=== PATIENT | female | born 1955 | race Caucasian/White ===

== ENCOUNTER 2024-06-12 20:45 | Inpatient (IN) | payer MEDICARE, SELFPAY ==
[2024-06-12] VITALS (26 sets, daily range): BP systolic 56–107; BP diastolic 38–70; BMI 29.6
[2024-06-12 17:03] LABS: % Basophils 0.7 % (0-2); % Eosinophils 2.2 % (0-6); % Immature Granulocytes 0.7 % (0-0.5); % Lymphocytes 31.8 % (20.5-51.1); % Monocytes 5.8 % (1.7-9.3); % Neutrophils 58.8 % (42.2-75.2); Absolute Basophils 0.1 10^3/uL (0-0.2); Absolute Eosinophils 0.4 10^3/uL (0-0.7); Absolute Immature Granulocytes 0.1 10^3/uL (0-0.05); Absolute Lymphocytes 5.4 10^3/uL (1.2-3.4); Absolute Neutrophils 9.9 10^3/uL (1.4-6.5); Hematocrit 44.6 % (37.0-47.0); Mean Corp Hgb Conc. 33.6 g/dL (33.0-37.0); Mean Corpuscular Hgb 29.8 pg (27.0-31.0); Mean Corpuscular Volume 88.7 fL (81.0-99.0); Mean Platelet Volume 9.4 fL (7.4-10.4); Nucleated Red Blood Cells % 0 %; Platelet Count 349 10^3/uL (130-400); Red Blood Cell Count 5.03 10^6/uL (4.20-5.40); Red Cell Dist. Width 13.6 % (11.5-14.5); White Blood Cell Count 16.8 10^3/uL (4.8-10.8)
[2024-06-12 17:22] LABS: ALT (SGPT) 14 U/L (0-35); AST (SGOT) 16 U/L (14-36); Albumin 4.3 g/dl (3.5-5.0); Alkaline Phosphatase 73 U/L (38-126); Blood Urea Nitrogen 63 mg/dl (7-17); Calcium 8.6 mg/dl (8.4-10.2); Carbon Dioxide 24 mmol/L (22-30); Chloride 96 mmol/L (98-107); Estimated Creatinine Clearance 10 ml/min; Glucose 137 mg/dl (70-99); Potassium 3.9 mmol/L (3.5-5.1); Sodium 138 mmol/L (135-145); Total Bilirubin 0.7 mg/dl (0.2-1.3); Total Protein 7.2 g/dl (6.3-8.2); eGFR 6.96
[2024-06-12] MEDS: NSS 1000 IV ×3 (17:51→22:51)
--- NOTE | 2024-06-12 18:51 | ED.GENMED ---
History of Present Illness
General
Chief Complaint: Abnormal Lab Value
Source: patient and spouse
Exam Limitations: none
Time Seen by Provider: 06/12/24 17:36
Nursing documentation reviewed up to this point in time: agreed with
History of Present Illness
History of Present Illness:
Patient is a 68-year-old female who presents from her family physician's office after she was found to be in renal failure. Over the past couple of months the patient's had visual difficulties and mild confusion. Patient was to have a outpatient
MRI for stroke and had blood work done yesterday which showed her BUN and creatinine to be very elevated. Patient denies headache. Patient denies chest pain, shortness of breath or palpitations. Patient denies any GI symptoms. Patient denies any
back or flank pain. Patient denies any dysuria, hematuria, urgency or frequency. Patient has no previous history of similar episodes. Patient has no history of kidney issues.
Past History
Past History
ED Past Medical History: HTN, NIDDM and Other (Migraines, neck pain, back pain)
Social History
Tobacco: Non-smoker
Review of Systems
Review of Systems
All Other Systems: ROS reviewed and negative except as documented in HPI and ROS
Constitutional: Reports fatigue; Denies fever or chills
EENT: Reports no symptoms
Respiratory: Reports no symptoms
Cardiac: Reports no symptoms
ABD/GI: Reports no symptoms
: Reports no symptoms
Musculoskeletal: Reports no symptoms
Skin: Reports no symptoms
Neurological: Reports other (Increased confusion); Denies dizzy, headache, weakness or numbness
Hematologic/Lymphatic: Reports no symptoms
Phy Exam
Physical Exam
Physical Exam:
Physical Exam
General: No apparent distress, alert and appropriate, well nourished, well hydrated
HENT: Normocephalic, supple with no lymphadenopathy, no thyromegaly
Eyes: Clear sclera, conjuctiva without injection
Heart: Regular rhythm and rate. No S3, S4. No murmur. No NVD, bruit
Lungs: No respiratory distress, no stridor, lung sounds clear and equal bilaterally
Abdomen: Soft, nontender, no organomegaly, no CVA tenderness, BS good
Neuro: Alert and oriented x 3, CN II - XII intact, no motor focality, no cerebellar dysfunction
Skin: no rash
Psychiatric: well kept. interactive and cooperative
Extremities: No edema, cyanosis, tenderness, Good and equal peripheral pulses.
Course
Orders/Labs/Results
Orders:
Orders
06/12/24 16:54
Comprehensive Metabolic Panel Urgent
06/12/24 16:55
Complete Blood Count/With Diff Urgent
06/12/24 17:22
Electrocardiogram (*1) Urgent
Reason for Study: Fatigue / Weakness
EKG- Treatment ONCE
06/12/24 17:50
0.9% Sodium Chloride 1000 ml [Nss] 1,000 ml IV BOLUS
06/12/24 18:50
US Renal With Bladder Urgent
Comment:
Reason For Exam: new onset renal failure
Abnormal Lab Results
06/12/24 06/12/24
16:54 16:55
WBC 16.8 H 10^3/uL
(4.8-10.8)
Abs Immat Gran (auto) 0.1 H 10^3/uL
(0-0.05)
Absolute Neuts (auto) 9.9 H 10^3/uL
(1.4-6.5)
Absolute Lymphs (auto) 5.4 H 10^3/uL
(1.2-3.4)
Absolute Monos (auto) 1.0 H 10^3/uL
(0.1-0.6)
Immature Gran % 0.7 H %
(0-0.5)
Chloride 96 L mmol/L
(98-107)
BUN 63 H mg/dl
(7-17)
Creatinine 6.2 H* mg/dL
(0.6-1.0)
Glucose 137 H mg/dl
(70-99)
06/12/24 16:55
06/12/24 16:54
Vital Signs
Initial and Last Documented VS:
Initial Vital Signs
Temp Pulse Resp BP Pulse Ox
98.1 F 79 18 86/53 98
06/12/24 16:44 06/12/24 16:44 06/12/24 16:44 06/12/24 16:44 06/12/24 16:44
Last Documented Vital Signs
Temp Pulse Resp BP Pulse Ox
98.1 F 71 9 71/45 96
06/12/24 16:44 06/12/24 18:45 06/12/24 18:45 06/12/24 18:45 06/12/24 18:45
*Radiology
Radiology exam reviewed: other (Awaiting ultrasound)
*Pulse Oximetry
Patient hypoxic: no
*EKG
Interpreted by ED Provider?: Yes
EKG Intrepretation Date: 06/12/24
EKG Intrepretation Time: 18:55
Interpretation: abnormal
Comparison EKG: no comparison EKG present
Heart Rate: 74
Rate: normal
Rhythm: sinus
Wendel: normal axis
Interval: normal interval
QRS Pattern: normal QRS
Ischemia: non-specific ST changes
*Elderly Companion Interpretation
Rate: normal
Interpretation: normal
Heart Rate: 74
Rhythm: sinus
*Critical Care Note
Total Time (30-74mins, 75-104mins- exclusive of procedures): Not Applicable
Update Note
Update Note:
Patient does appear dry and dehydrated. Etiology of the patient's renal failure could be medication as she is on lisinopril, hypertension and/or diabetes. Will give IV fluids especially in light of the patient's blood pressure being so low.
Patient will be admitted. Patient will get an ultrasound of her kidneys while awaiting admission.
ED Attending Note
-
Portions of this chart may have been created with voice recognition software.� Occasional wrong word or��sound alike� substitutions may have occurred due to the inherent limitations of voice recognition software.
Discharge Plan
Departure
Patient Disposition: Admit
Date of Disposition: 06/12/24
Time of Disposition: 18:57
Admit to: Telemetry
Admit to doctor: Hospitalist
Presentation/result/management discussed w/ accepting MD/DO: Hospitalist
Patient with high blood pressure during this ER visit?: No
Condition: Serious
Covid-19: Not Applicable
Discharge Problem:
Acute renal failure
Prescriptions:
No Action
lisinopril 20 mg tablet
20 mg PO DAILY
amlodipine 5 mg tablet
5 mg PO DAILY
aspirin 81 mg Tablet,Delayed Release (Dr/Ec)
81 mg PO DAILY
oxycodone 15 mg tablet
15 mg PO Q4HPRN PRN (Reason: moderate pain)
Patient Comments:
06/12/2024: last filled 06/10/24, 180 tabs for 30 days from [facility]
gabapentin 300 mg capsule
600 mg PO TID
insulin lispro [Humalog KwikPen Insulin] 100 unit/mL Insulin Pen
10 unit SC BID
insulin glargine [Lantus Solostar U-100 Insulin] 100 unit/mL (3 mL) insulin pen
25 unit SC BID
Interventions
Interventions:
*Risk Screen - Suicide Last Done: 06/12/24 16:44
*General Assessment Last Done: 06/12/24 16:44
*Neglect/Abuse Screening Last Done: 06/12/24 16:44
ED- Fall Risk Assessment Last Done: 06/12/24 17:55
Discharge Date and Time
Print Language: LATVIAN
--- NOTE | 2024-06-12 20:37 | HPS.HSE ---
Family Physician
-
Family Physician: Salvador Sarabia
Chief Complaint
-
confusion
History of Present Illness
68-year-old female past medical history of hypertension, diabetes, migraines, chronic neck/back pain, presenting from family physician's office after she was found to be in renal failure. Over the past few months the patient has had multiple
symptoms including intermittent confusion, memory loss, blurry vision. Patient had blood work done yesterday by her primary which showed elevated BUN and creatinine. She was also supposed to have outpatient MRI brain done. She denies any
headache. She denies any chest pain or shortness of breath or palpitations. She denies any nausea vomiting or abdominal pain or diarrhea. She has had decreasing urine output. She has decreased appetite. She denies urinary symptoms such as
burning or frequency. She denies any new medications recently. She denies difficulty speaking or swallowing or numbness or tingling or focal weakness. She denies NSAID use. Denies any lower extremity.
She denies smoking or alcohol use.
Medical History
Past Medical History
Past Medical History: Reports Other (hypertension, diabetes, migraines, chronic neck/back pain,)
Past Surgical History: Reports None
Social History
Tobacco: Non-smoker
Alcohol: None
Drug: None
Family History
Family History: Not pertinent
Allergies / Home Medications
Allergies reflects when Allergies were last updated in [facility].
Home Medications with original date entered in [facility]
Allergy/Medication List:
Allergies
Allergy/AdvReac Type Severity Reaction Status Date / Time
anti inflamatories Allergy Swelling Uncoded 07/30/08 16:12
tape Allergy Itching Uncoded 07/30/08 16:12
Home Medications
amlodipine 5 mg tablet 5 mg PO DAILY 06/12/24
aspirin 81 mg tablet,delayed release 81 mg PO DAILY 06/12/24
gabapentin 300 mg capsule 600 mg PO TID 06/12/24
insulin glargine 100 unit/mL (3 mL) subcutaneous pen (Lantus Solostar U-100 Insulin) 25 unit SC BID 06/12/24
insulin lispro 100 unit/mL subcutaneous pen (Humalog KwikPen (U-100) Insulin) 10 unit SC BID 06/12/24
lisinopril 20 mg tablet 20 mg PO DAILY 06/12/24
oxycodone 15 mg tablet 15 mg PO Q4HPRN PRN moderate pain 06/12/24
Review of Systems
-
History Source: Patient
A 12 point ROS was completed and negative except as noted: Yes
Constitutional: Reports No Symptoms
EENT: Reports No Symptoms
Respiratory: Reports No Symptoms
Cardiac: Reports No Symptoms
Abdomen/GI: Reports No Symptoms
: Reports No Symptoms
Musculoskeletal: Reports No Symptoms
Skin: Reports No Symptoms
Neurological: Reports See HPI
Endocrine: Reports No Symptoms
Hematologic/Lymphatic: Reports No Symptoms
Psych: Reports No Symptoms
Physical Exam
Vital Signs
Vital Signs
Temp Pulse Resp BP Pulse Ox
98.1 F 79 14 89/51 98
06/12/24 16:44 06/12/24 20:00 06/12/24 20:00 06/12/24 20:00 06/12/24 19:15
Physical Exam
General: Well Developed, Well Nourished and No Apparent Distress
HEENT: NormoCephalic, Moist mucous membranes and Atraumatic
Respiratory: Clear
Cardiac: S1/S2 and Regular Rhythm; No Murmur or Rub
GI: Soft, Non Tender, Non Distended and Normal Bowel Sounds; No Organomegaly
Rectal: Deferred by Provider
Musculoskeletal: No Clubbing, No Cyanosis and No Edema
Skin: No Rash
Neuro: Nonfocal/grossly intact
Laboratory Results
-
06/12/24 16:55
06/12/24 16:54
Laboratory Results
Total Bilirubin 0.7 mg/dl (0.2-1.3) 06/12/24 16:54
AST 16 U/L (14-36) 06/12/24 16:54
ALT 14 U/L (0-35) 06/12/24 16:54
Alkaline Phosphatase 73 U/L (38-126) 06/12/24 16:54
Data Reviewed
-
Lab Data: Labs Reviewed by me
Old Records: Reviewed
Impression/Plan
-
IMPRESSION:
PLAN:
# Uremic encephalopathy
# Oliguric TY secondary to hypotension/TRINIDAD inhibitor
-Not volume overloaded on examination
-EKG shows normal sinus rhythm
-Renal ultrasound shows nonobstructing right renal calculus, no hydronephrosis
-Check urinalysis
-Check I's and O's
-Bladder scan protocol
-IV fluids
-Hold lisinopril, amlodipine
-Nephrology consulted
Essential hypertension
Type 2 diabetes
-Reduce Lantus from 25 BID to 12 BID given decreased PO intake
-ISS
Diabetic neuropathy
-Continue gabapentin
History of migraines
Chronic neck/back pain
-Continue oxycodone
DNR/DNI
DVT prophylaxis heparin
Renal diet
--- NOTE | 2024-06-12 22:50 | PTCARENOTE ---
pt adm to ICU (IMU status), aaox3, forgetful, SR HR 70s, RA Sat 95%, RA IV patent. assessment as documented, POC discussed, call woodson with patient. bed alarm on.
[2024-06-12] MEDS: ROXICODONE 5 MG PO (23:04)
[2024-06-12 23:28] LABS: Glucose - Point of Care 116 mg/dl (70-99)
[2024-06-13] VITALS (21 sets, daily range): BP systolic 74–137; BP diastolic 49–72; BMI 29.0
[2024-06-13 05:47] LABS: Hematocrit 37.4 % (37.0-47.0); Hemoglobin 12.8 g/dL (12.0-16.0); Mean Corp Hgb Conc. 34.2 g/dL (33.0-37.0); Mean Corpuscular Hgb 30.5 pg (27.0-31.0); Mean Platelet Volume 9.8 fL (7.4-10.4); Platelet Count 195 10^3/uL (130-400); Red Cell Dist. Width 13.2 % (11.5-14.5)
[2024-06-13 06:07] LABS: ALT (SGPT) 11 U/L (0-35); AST (SGOT) 14 U/L (14-36); Albumin 3.3 g/dl (3.5-5.0); Alkaline Phosphatase 65 U/L (38-126); Blood Urea Nitrogen 60 mg/dl (7-17); Calcium 7.8 mg/dl (8.4-10.2); Carbon Dioxide 23 mmol/L (22-30); Chloride 105 mmol/L (98-107); Estimated Creatinine Clearance 13 ml/min; Glucose 119 mg/dl (70-99); Sodium 140 mmol/L (135-145); Total Bilirubin 0.5 mg/dl (0.2-1.3); Total Protein 5.9 g/dl (6.3-8.2)
[2024-06-13 06:07] LABS: Urine Albumin Negative (Neg - Trace); Urine Bilirubin Negative (Negative); Urine Character Clear (Clear); Urine Color Yellow; Urine Glucose Negative (Negative); Urine Ketone Negative (Negative); Urine Leukocyte 1+ (Negative); Urine Nitrite Negative (Negative); Urine Occult Blood Negative (Negative); Urine Specific Gravity 1.015 (<1.030); Urine Urobilinogen Negative (Neg - 1+)
[2024-06-13 06:42] LABS: Urine Mucus Moderate; Urine Squamous Cell >30 /LPF (Few)
[2024-06-13 06:43] LABS: Urine Bacteria Many (Negative); Urine Red Blood Cell 0-2 /HPF (0-2); Urine White Cell 40-50 /HPF (0-5)
[2024-06-13 07:59] LABS: Glucose - Point of Care 111 mg/dl (70-99)
[2024-06-13] MEDS: NOVOLOG FLEXPEN-LOW RESISTANCE SC (08:09)
[2024-06-13] MEDS: LANTUS 0.12 UNITS SC ×2 (08:23→20:48)
[2024-06-13] MEDS: ASPIR LOW (ENTERIC COATED) 81 MG PO (08:24)
[2024-06-13] MEDS: NEURONTIN 300 MG PO (08:24)
[2024-06-13] MEDS: HEPARIN 5000 UNITS SC ×2 (08:24→20:48)
[2024-06-13] MEDS: ROXICODONE 5 MG PO ×2 (08:31→16:36)
[2024-06-13] MEDS: NSS 1000 IV ×2 (08:31→22:03)
--- NOTE | 2024-06-13 09:30 | PTCARENOTE ---
Rec'd care of patient at 0715. Patient alert and oriented. Forgetful. NSR with PACs on tele monitor. No edema. Palpable pulses. Lung sounds diminished in b/l base. Pulse ox 92% on RA. +BS. Per patient, last BM 06/12. Voiding in bathroom. Standby
supervision with ambulation due to generalized weakness. OOB in chair. IVFs infusing through peripheral INT. VSS.
[2024-06-13 10:09] LABS: Glycohemoglobin (HgbA1c) 6.7 % (4.0-5.6)
[2024-06-13] MEDS: STERILE WATER FOR INJECTION 10 ML IV (10:22)
[2024-06-13] MEDS: ROCEPHIN 1000 MG IV (10:22)
[2024-06-13 11:56] LABS: Glucose - Point of Care 202 mg/dl (70-99)
--- NOTE | 2024-06-13 11:58 | CM ---
CM reviewed medical records. Patient lives independently with . Patient has had a remote history of [facility], but is currently not on service. Patient does not have a history of SNF and currently does not rely on any DME. Patient is
active with her PCP. Patient uses [facility] for medication services.
PLAN: Pending nephrology work up.
[2024-06-13] MEDS: NOVOLOG FLEXPEN-LOW RESISTANCE 2 UNITS SC (12:18)
--- NOTE | 2024-06-13 13:11 | W.PN.HOSP.TC ---
Today's Communication/Plan
-
see outlined plan
Assessment / Plan
Assessment / Plan
Assessment:
Uremic encephalopathy
Oliguric TY secondary to hypotension/TRINIDAD inhibitor
- possible ischemic ATN
- check FENA
- Renal US: Nonobstructing right renal calculus. No hydronephrosis.
- continue IVF
- BS/SC protocol
- Nephrology consulted; follow their workup
- trend BMP
Essential hypertension
- hold TRINIDAD
Type 2 diabetes
- Reduce Lantus from 25 BID to 12 BID given decreased PO intake
- ISS
Diabetic neuropathy
- continue gabapentin renally dosed
History of migraines
Chronic neck/back pain
- continue oxycodone
UTI
- on Rocephin, day 1
- follow cultures
2.5 months of blurred vision
- CT head ordered d/t concern from OP ophthalmology for CVA
DVT ppx: Heparin
Code: DNR/DNI
Anticipated Discharge: > 48 hours
Subjective/Interval History
-
Date of Service: June 13, 2024
feels well no complaints currently
reports 2.5 months of blurry vision
Objective Data
-
Labs:
Laboratory Results
06/13/24
05:27
WBC 11.0 H
Hgb 12.8
Hct 37.4
Plt Count 195 D
Sodium 140
Potassium 4.0
Chloride 105
Carbon Dioxide 23
BUN 60 H
Creatinine 4.7 H*
Glucose 119 H
Calcium 7.8 L
Total Bilirubin 0.5
AST 14
ALT 11
Alkaline Phosphatase 65
Vital Signs:
Vital Signs
Temp Pulse Resp BP Pulse Ox
98.1 F 72 13 92/68 88
06/13/24 11:30 06/13/24 12:00 06/13/24 12:00 06/13/24 12:00 06/13/24 10:00
I&O
06/12/24 06/13/24 06/14/24
06:59 06:59 06:59
Intake Total 700 / 800 1220 / 1220
Output Total 400 / 400 650 / 650
Balance 300 / 400 570 / 570
Physical Exam
-
General: No Apparent Distress
HEENT: Normocephalic and Atraumatic
Respiratory: Negative Wheezes
Cardiac: Regular Rhythm and S1/S2
GI: Soft
Genito-urinary: No Costovertebral Tender
Musculoskeletal: No Edema
Neuro: AO x 3
Psych: Calm
Data Reviewed
-
Total Time Spent with Patient (in minutes): 47
Labs: Labs Reviewed by me
--- NOTE | 2024-06-13 13:26 | PTCARENOTE ---
Patient downgraded to telemetry level. VSS. OOB in chair eating lunch.
--- NOTE | 2024-06-13 14:08 | PTCARENOTE ---
Head CT complete.
--- NOTE | 2024-06-13 15:22 | W.CON.NEPH ---
Consultation
-
Date/Time Consultation Requested: 06/12/2024 22:29PM
Date/Time Consultation Performed: 06/13/2024 3:23PM
Requesting Provider: Manuela Poon
Performing Provider: Maddy Blair
Reason for Consultation: TY
Medical History
-
Chief Complaint: TY
History of Present Illness:
Ms. Rogers is a 68YOF with PMH of HTN, T2DM, migraines, chronic neck/back pain who presents from her primary care physicians office due to ARF.
The patient states she was in her usual state of health. Endorses some fatigue over the past week so has not been eating or drinking well. Per H&P, she does endorse some intermittent confusion, memory loss and blurry vision. she was planned for MRI
brain. She had her blood work done by PCP and noted an elevated BUn and Cr and she was instructed to present to the ER for further management.
She denies rash, fevers, recent illnesses, travel, joint pain, new medications, urinary symptoms, changes in urination, abdominal pain. She denies metallic taste in her mouth.
States that she feels much better today than she did yesterday.
Past Medical History
HTN -- well controlled at home on amlodipine and lisinopril. was taking amlo and lisinopril without missing any doses
T2DM -- on insulin at home
chronic neck/back pain
migraines
Past Medical History: Other
Past Surgical History: None
Social History
Tobacco: Non-Smoker
Alcohol: None
Drug: None
Personal:
Living: With Family
Family History
no CKD in the family
Allergies / Home Medications
Allergy/AdvReac Type Severity Reaction Status Date / Time
NSAIDS (Non-Steroidal Allergy Swelling, Verified 06/12/24 22:36
Anti-Inflamma ITCHING
tape Allergy Itching Uncoded 07/30/08 16:12
�Medication �Instructions �Recorded �Confirmed �Type
amlodipine 5 mg tablet 5 mg PO DAILY Blood Pressure 06/12/24 06/12/24 History
aspirin 81 mg tablet,delayed 81 mg PO DAILY Blood Clot 06/12/24 06/12/24 History
release Prevention/Tx
gabapentin 300 mg capsule 600 mg PO TID Pain 06/12/24 06/12/24 History
insulin glargine 100 unit/mL (3 25 unit SC BID Diabetes 06/12/24 06/12/24 History
mL) subcutaneous pen (Lantus
Solostar U-100 Insulin)
insulin lispro 100 unit/mL 10 unit SC BID Diabetes 06/12/24 06/12/24 History
subcutaneous pen (Humalog KwikPen
(U-100) Insulin)
lisinopril 20 mg tablet 20 mg PO DAILY Blood Pressure 06/12/24 06/12/24 History
oxycodone 15 mg tablet 15 mg PO Q4HPRN PRN moderate pain 06/12/24 06/12/24 History
Review of Systems
-
History Source: Patient and Family
All other systems: Negative unless noted
Constitutional: Weight Loss (lost about 60lbs over the past year (intentional))
Physical Exam
Vital Signs
Vital Signs
Temp Pulse Resp BP Pulse Ox
97.8 F 85 23 104/49 97
06/13/24 15:10 06/13/24 15:05 06/13/24 15:05 06/13/24 15:05 06/13/24 15:05
Lab Results
WBC 11.0 10^3/uL (4.8-10.8) H 06/13/24 05:27
RBC 4.20 10^6/uL (4.20-5.40) 06/13/24 05:27
Hgb 12.8 g/dL (12.0-16.0) 06/13/24 05:27
Hct 37.4 % (37.0-47.0) 06/13/24 05:27
Plt Count 195 10^3/uL (130-400) D 06/13/24 05:27
Sodium 140 mmol/L (135-145) 06/13/24 05:27
Potassium 4.0 mmol/L (3.5-5.1) 06/13/24 05:27
Chloride 105 mmol/L (98-107) 06/13/24 05:27
Carbon Dioxide 23 mmol/L (22-30) 06/13/24 05:27
BUN 60 mg/dl (7-17) H 06/13/24 05:27
Creatinine 4.7 mg/dL (0.6-1.0) H* 06/13/24 05:27
eGFR 9.70 06/13/24 05:27
Glucose 119 mg/dl (70-99) H 06/13/24 05:27
Calcium 7.8 mg/dl (8.4-10.2) L 06/13/24 05:27
Albumin 3.3 g/dl (3.5-5.0) L 06/13/24 05:27
Physical Exam
General: AOx3, No Distress and Nontoxic
HEENT: PERRL, EOMI, Anicteric, Conjunctivae Clear, Ear/Nose Intact, Hearing Normal, Oropharynx Clear/Moist, Dentition Intact, Facial Symmetry, Neck Supple, Trachea Midline, No JVD and No Thyromegaly
Respiratory: Clear, Normal Excursion and Nonlabored Respirations
Cardiac: S1/S2, Regular Rate/Rhythm and No Edema
Breast: Deferred by me
Abdomen: Soft, Nontender, Nondistended, Normal Bowel Sounds and No Hepatosplenomegaly
Rectal: Deferred by Provider
Genito-urinary: No Costovertebral Tender
Musculoskeletal: No Clubbing, No Cyanosis and No Edema
Skin: No Rash, Warm, Dry, No Clubbing and No Cyanosis
Neuro: Nonfocal/Grossly Intact
Hematologic/Lymphatic: No Cervical Lymphadenopathy and No Submandibular Lymphadenopathy
Psych: Mood/afflect pleasant, Insight/judgement good and Appropriate
Data Reviewed
-
Ultrasound: Report Reviewed by me (IMPRESSION: 1. Nonobstructing right renal calculus. No hydronephrosis. Otherwise unremarkable renal ultrasound, as detailed above.)
Medical Tests (Nuc Med, Echo etc): Image Personally Visualized and interpreted (NSR)
Labs: Labs Reviewed by me
Old Records: Reviewed
Assessment/Plan
-
Assessment:
TY
HTN --> now hypotensive
T2DM
chronic neck/back pain
c/f UTI
Plan:
TY
- patient with Cr bump from 0.7 (2007) --> 6.7. improved to 4.7. Per the patient, she has had normal kidney function prior to this.
- urine output improving to 1.3L with IVF
- KUS relatively unremarkable (stone noted) and UA without blood or protein. notable for possible UTI
- i will obtain UPCR, SPEP, UPEP for initial workup
- check phos to better understand chronicity of disease
- most likely ATN in the setting of new onset hypotension and consistent use of TRINIDAD + CCB
- unclear of cause of hypotension --> workup per primary team. infection vs. autonomic dysfunction?
- okay with rocephin for now although patient is asx
- continue fluids as you are
- trend Cr and UOP
- avoid further nephrotoxins and hyperglycemia
We will continue to follow
--- NOTE | 2024-06-13 16:17 | PTCARENOTE ---
Report given to FERCHO Segovia. Patient transported with belongings to 3W room 316.
[2024-06-13 16:45] LABS: Glucose - Point of Care 172 mg/dl (70-99)
[2024-06-13] MEDS: NOVOLOG FLEXPEN-LOW RESISTANCE 1 UNITS SC (16:46)
[2024-06-13 17:34] LABS: Phosphorus 4.9 mg/dl (2.5-4.5)
[2024-06-13 20:25] LABS: Protein/creatinine Ratio 0.3; Urine Protein 30 mg/dl
[2024-06-13 20:41] LABS: Glucose - Point of Care 160 mg/dl (70-99)
[2024-06-13] MEDS: TYLENOL 650 MG PO (22:25)
[2024-06-14] VITALS (7 sets, daily range): BP systolic 111–153; BP diastolic 55–87; PULSE 79
[2024-06-14 06:36] LABS: % Basophils 0.4 % (0-2); % Eosinophils 2.8 % (0-6); % Immature Granulocytes 0.5 % (0-0.5); % Lymphocytes 38.6 % (20.5-51.1); % Monocytes 5.6 % (1.7-9.3); % Neutrophils 52.1 % (42.2-75.2); Absolute Eosinophils 0.2 10^3/uL (0-0.7); Absolute Lymphocytes 3.1 10^3/uL (1.2-3.4); Absolute Monocytes 0.4 10^3/uL (0.1-0.6); Absolute Neutrophils 4.1 10^3/uL (1.4-6.5); Hematocrit 36.1 % (37.0-47.0); Hemoglobin 12.3 g/dL (12.0-16.0); Mean Corp Hgb Conc. 34.1 g/dL (33.0-37.0); Mean Corpuscular Volume 85.1 fL (81.0-99.0); Nucleated Red Blood Cells % 0 %; Platelet Count 204 10^3/uL (130-400); Red Blood Cell Count 4.24 10^6/uL (4.20-5.40); White Blood Cell Count 7.9 10^3/uL (4.8-10.8)
[2024-06-14 06:45] LABS: Blood Urea Nitrogen 39 mg/dl (7-17); Carbon Dioxide 22 mmol/L (22-30); Chloride 109 mmol/L (98-107); Estimated Creatinine Clearance 34 ml/min; Glucose 118 mg/dl (70-99); Potassium 3.7 mmol/L (3.5-5.1); Sodium 141 mmol/L (135-145); eGFR 30.69
[2024-06-14 06:58] LABS: Glucose - Point of Care 122 mg/dl (70-99)
[2024-06-14] MEDS: NOVOLOG FLEXPEN-LOW RESISTANCE SC ×3 (08:37→16:48)
[2024-06-14] MEDS: NSS 1000 IV (08:38)
[2024-06-14] MEDS: ASPIR LOW (ENTERIC COATED) 81 MG PO (08:40)
[2024-06-14] MEDS: HEPARIN 5000 UNITS SC ×2 (08:40→20:21)
[2024-06-14] MEDS: NEURONTIN 300 MG PO (08:40)
[2024-06-14] MEDS: LANTUS 0.12 UNITS SC ×2 (08:41→21:40)
[2024-06-14] MEDS: ROXICODONE 5 MG PO (08:43)
--- NOTE | 2024-06-14 09:04 | W.PN.HOSP.TC ---
Today's Communication/Plan
-
BP improving
follow BMP
continue UTI Abx
DC planning in 24 hours
Assessment / Plan
Assessment / Plan
Assessment:
Uremic encephalopathy
Oliguric TY secondary to hypotension/TRINIDAD inhibitor
- possible ischemic ATN from hypotension
- Renal US: Nonobstructing right renal calculus. No hydronephrosis.
- continue IVF
- BS/SC protocol
- Nephrology following; follow their workup
- trend BMP; Cr dramatically improving from 6.2 to 1.8 in 48 hours
Essential hypertension
- holding TRINIDAD
Type 2 diabetes
- Reduce Lantus from 25 BID to 12 BID given decreased PO intake/TY
- monitor sugars
- ISS
- A1c: 6.7%
Diabetic neuropathy
- continue gabapentin renally dosed
History of migraines
Chronic neck/back pain
- continue oxycodone
UTI
- on Rocephin, day 2/
- follow cultures
2.5 months of blurred vision
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
- continue ASA
- add statin; check lipids
- PT/OT
- OP Neuro-ophthalmology consultation
DVT ppx: Heparin
Code: DNR/DNI
Anticipated Discharge: Within 24 hours
Subjective/Interval History
-
Date of Service: June 14, 2024
no new complaints at present
Objective Data
-
Labs:
Laboratory Results
06/14/24
05:47
WBC 7.9
Hgb 12.3
Hct 36.1 L
Plt Count 204
Sodium 141
Potassium 3.7
Chloride 109 H
Carbon Dioxide 22
BUN 39 H
Creatinine 1.8 H
Glucose 118 H
Calcium 9.0
Vital Signs:
Vital Signs
Temp Pulse Resp BP Pulse Ox
97.8 F 69 16 116/67 100
06/14/24 07:36 06/14/24 07:36 06/14/24 07:36 06/14/24 07:36 06/14/24 07:36
I&O
06/13/24 06/14/24 06/15/24
06:59 06:59 06:59
Intake Total 700 / 800 3380 / 3380
Output Total 400 / 400 900 / 900
Balance 300 / 400 2480 / 2480
Physical Exam
-
General: No Apparent Distress
HEENT: Normocephalic and Atraumatic
Respiratory: Negative Wheezes
Cardiac: Regular Rhythm and S1/S2
GI: Soft
Genito-urinary: No Costovertebral Tender
Neuro: AO x 3
Hematologic / Lymphatic: No Lymphadenopathy
Psych: Calm
Data Reviewed
-
Total Time Spent with Patient (in minutes): 42
Labs: Labs Reviewed by me
[2024-06-14] MEDS: ROCEPHIN 1000 MG IV (10:33)
[2024-06-14] MEDS: STERILE WATER FOR INJECTION 10 ML IV (10:35)
--- NOTE | 2024-06-14 12:49 | W.PN.NEPH.PH ---
Today's Communication / Plan
-
- d/c fluids
Assessment/Plan
-
Assessment:
TY
HTN --> now hypotensive
T2DM
chronic neck/back pain
c/f UTI
Plan:
TY
- patient with Cr bump from 0.7 (2007) --> 6.7. improved to 1.8. Per the patient, she has had normal kidney function prior to this.
- urine output not accurately recorded
- KUS relatively unremarkable (stone noted) and UA without blood or protein. notable for possible UTI
- i will obtain SPEP, UPEP for initial workup. UPCR 0.3
- phos only mildly elevated, indicating this is likely not a chronic process
- most likely ATN in the setting of new onset hypotension and consistent use of TRINIDAD + CCB
- unclear of cause of hypotension --> workup per primary team. infection vs. autonomic dysfunction? improved with fluids and abx
- okay with rocephin for now although patient is asx
- d/c fluids today
- trend Cr and UOP
- avoid further nephrotoxins and hyperglycemia
Patient would like to be discharged [facility]. We did discuss one more day of observation would be helpful. She is amenable. We will continue to follow
-
-
Date of Service: June 14, 2024
CC / HPI / ROS
-
Chief Complaint:
TY
History of Present Illness:
Cr peak 6.2, now down to 1.8
BPs improving
Review of Systems:
no sxs
Labs
-
Labs:
WBC 7.9 10^3/uL (4.8-10.8) 06/14/24 05:47
RBC 4.24 10^6/uL (4.20-5.40) 06/14/24 05:47
Hgb 12.3 g/dL (12.0-16.0) 06/14/24 05:47
Hct 36.1 % (37.0-47.0) L 06/14/24 05:47
Plt Count 204 10^3/uL (130-400) 06/14/24 05:47
Sodium 141 mmol/L (135-145) 06/14/24 05:47
Potassium 3.7 mmol/L (3.5-5.1) 06/14/24 05:47
Chloride 109 mmol/L (98-107) H 06/14/24 05:47
Carbon Dioxide 22 mmol/L (22-30) 06/14/24 05:47
BUN 39 mg/dl (7-17) H 06/14/24 05:47
Creatinine 1.8 mg/dL (0.6-1.0) H 06/14/24 05:47
eGFR 30.69 06/14/24 05:47
Glucose 118 mg/dl (70-99) H 06/14/24 05:47
Calcium 9.0 mg/dl (8.4-10.2) 06/14/24 05:47
Phosphorus 4.9 mg/dl (2.5-4.5) H 06/13/24 17:13
Albumin 3.3 g/dl (3.5-5.0) L 06/13/24 05:27
Physical Exam
-
Vital Signs:
Vital Signs
Temp Pulse Resp BP Pulse Ox
98.0 F 79 16 143/80 100
06/14/24 10:59 06/14/24 10:59 06/14/24 10:59 06/14/24 10:59 06/14/24 10:59
Cardiovascular:: Regular rate and rhythm
Respiratory:: Bilateral: CTA
Lung Excursion:: Normal
Abdomen:: Nontender and Soft
Bowel Sounds:: Normal
Extremity Edema:: None: Bilateral:
Sauceda Catheter: No
[2024-06-14 16:39] LABS: Glucose - Point of Care 143 mg/dl (70-99)
[2024-06-14] MEDS: LIPITOR 40 MG PO (17:21)
[2024-06-14 21:45] LABS: Glucose - Point of Care 151 mg/dl (70-99)
[2024-06-15 03:00] VITALS: BP 149/90
[2024-06-15 06:58] LABS: % Basophils 0.7 % (0-2); % Eosinophils 2.9 % (0-6); % Immature Granulocytes 0.6 % (0-0.5); % Lymphocytes 32.8 % (20.5-51.1); % Monocytes 6.2 % (1.7-9.3); % Neutrophils 56.8 % (42.2-75.2); Absolute Basophils 0.1 10^3/uL (0-0.2); Absolute Eosinophils 0.2 10^3/uL (0-0.7); Absolute Lymphocytes 2.4 10^3/uL (1.2-3.4); Absolute Monocytes 0.5 10^3/uL (0.1-0.6); Absolute Neutrophils 4.1 10^3/uL (1.4-6.5); Hematocrit 37.2 % (37.0-47.0); Hemoglobin 13.1 g/dL (12.0-16.0); Mean Corp Hgb Conc. 35.2 g/dL (33.0-37.0); Mean Corpuscular Volume 85.3 fL (81.0-99.0); Mean Platelet Volume 10.4 fL (7.4-10.4); Nucleated Red Blood Cells % 0 %; Platelet Count 181 10^3/uL (130-400); Red Blood Cell Count 4.36 10^6/uL (4.20-5.40); Red Cell Dist. Width 12.6 % (11.5-14.5); White Blood Cell Count 7.3 10^3/uL (4.8-10.8)
[2024-06-15 07:29] LABS: Blood Urea Nitrogen 24 mg/dl (7-17); Calcium 9.4 mg/dl (8.4-10.2); Carbon Dioxide 26 mmol/L (22-30); Chloride 106 mmol/L (98-107); Estimated Creatinine Clearance 56 ml/min; Glucose 110 mg/dl (70-99); HDL Cholesterol 30 mg/dl; LDL Cholesterol, Calculated 80 mg/dl; Potassium 3.8 mmol/L (3.5-5.1); Sodium 143 mmol/L (135-145); Total Cholesterol 139 mg/dl (50-199); Triglyceride 147 mg/dl (10-149); Very Low Density Lipoprotein 29 mg/dl (0-30); eGFR 55.42
[2024-06-15 07:31] VITALS: BP 143/78
[2024-06-15] MEDS: NEURONTIN 300 MG PO (07:44)
[2024-06-15] MEDS: HEPARIN 5000 UNITS SC (07:44)
[2024-06-15] MEDS: LANTUS 0.12 UNITS SC (07:44)
[2024-06-15] MEDS: ASPIR LOW (ENTERIC COATED) 81 MG PO (07:44)
[2024-06-15] MEDS: NOVOLOG FLEXPEN-LOW RESISTANCE SC (07:48)
[2024-06-15 07:49] LABS: Glucose - Point of Care 110 mg/dl (70-99)
[2024-06-15 07:58] LABS: Cortisol, Random 16.2 ug/dl; TSH Reflex To Free T4 0.62 uIU/ml (0.47-4.68)
--- NOTE | 2024-06-15 09:21 | CM ---
Reviewed chart, patient close to baseline and functioning and a supervision level for therapy. Patient should return home when medically stable.
Plan: Case management will continue to follow and assist with discharge planning. Home when cleared for discharge.
[2024-06-15] MEDS: STERILE WATER FOR INJECTION 10 ML IV (09:58)
[2024-06-15] MEDS: ROCEPHIN 1000 MG IV (10:00)
[2024-06-15 11:01] VITALS: BP 159/85
--- NOTE | 2024-06-15 11:09 | W.PN.NEPH.PH ---
Today's Communication / Plan
-
okay for dc from nephrology perspective
Assessment/Plan
-
Assessment:
TY
HTN --> now hypotensive
T2DM
chronic neck/back pain
c/f UTI
Plan:
TY
- patient with Cr bump from 0.7 (2007) --> 6.7. improved to 1.1. Per the patient, she has had normal kidney function prior to this.
- urine output not accurately recorded
- KUS relatively unremarkable (stone noted) and UA without blood or protein. notable for possible UTI
- i will obtain SPEP, UPEP for initial workup. UPCR 0.3
- phos only mildly elevated, indicating this is likely not a chronic process
- most likely ATN in the setting of new onset hypotension and consistent use of TRINIDAD + CCB
- unclear of cause of hypotension --> workup per primary team. infection vs. autonomic dysfunction? improved with fluids and abx likely infection
- for d/c continue to hold TRINIDAD and continue amlodipine 5mg. instructed to hold anti HTN if feeling lightheaded or dizzy
- okay with rocephin for now although patient is asx
- d/c fluids today
- trend Cr and UOP
- avoid further nephrotoxins and hyperglycemia
For discharge today
-
-
Date of Service: June 15, 2024
CC / HPI / ROS
-
Chief Complaint:
TY
History of Present Illness:
Cr peak 6.2, now down to 1.1
BPs improving
Review of Systems:
no sxs
Labs
-
Labs:
WBC 7.3 10^3/uL (4.8-10.8) 06/15/24 05:54
RBC 4.36 10^6/uL (4.20-5.40) 06/15/24 05:54
Hgb 13.1 g/dL (12.0-16.0) 06/15/24 05:54
Hct 37.2 % (37.0-47.0) 06/15/24 05:54
Plt Count 181 10^3/uL (130-400) 06/15/24 05:54
Sodium 143 mmol/L (135-145) 06/15/24 05:54
Potassium 3.8 mmol/L (3.5-5.1) 06/15/24 05:54
Chloride 106 mmol/L (98-107) 06/15/24 05:54
Carbon Dioxide 26 mmol/L (22-30) 06/15/24 05:54
BUN 24 mg/dl (7-17) H 06/15/24 05:54
Creatinine 1.1 mg/dL (0.6-1.0) H 06/15/24 05:54
eGFR 55.42 06/15/24 05:54
Glucose 110 mg/dl (70-99) H 06/15/24 05:54
Calcium 9.4 mg/dl (8.4-10.2) 06/15/24 05:54
Phosphorus 4.9 mg/dl (2.5-4.5) H 06/13/24 17:13
Albumin 3.3 g/dl (3.5-5.0) L 06/13/24 05:27
Physical Exam
-
Vital Signs:
Vital Signs
Temp Pulse Resp BP Pulse Ox
98.5 F 75 17 159/85 99
06/15/24 11:01 06/15/24 11:01 06/15/24 11:01 06/15/24 11:01 06/15/24 11:01
Cardiovascular:: Regular rate and rhythm
Respiratory:: Bilateral: CTA
Lung Excursion:: Normal
Abdomen:: Nontender and Soft
Bowel Sounds:: Normal
Extremity Edema:: None: Bilateral:
Sauceda Catheter: No
--- NOTE | 2024-06-15 11:27 | W.PN.HOSP.TC ---
Today's Communication/Plan
-
dc to home
Assessment / Plan
Assessment / Plan
Assessment:
Uremic encephalopathy
Oliguric TY secondary to hypotension/TRINIDAD inhibitor
- possible ischemic ATN from hypotension
- Renal US: Nonobstructing right renal calculus. No hydronephrosis.
- BS/SC protocol - no retention
- Nephrology following; workup pending
- trend BMP; Cr dramatically improving from 6.2 to 1.1 in 48 hours
- ok for DC home
Essential hypertension
- stop TRINIDAD
- continue CCB
Type 2 diabetes
- Reduce Lantus to 15 bid at discharge, lispro to 5 BID
- monitor sugars
- ISS
- A1c: 6.7%
Diabetic neuropathy
- continue gabapentin renally dosed
History of migraines
Chronic neck/back pain
- continue oxycodone
UTI
- culture negative, dc Abx
2.5 months of blurred vision
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
- continue ASA
- continue statin; LDL 80
- OT and ST evals OP
- OP Neuro-ophthalmology consultation
DVT ppx: Heparin
Code: DNR/DNI
More than 30 minutes spent in discharge including
Final examination of the patient
Summarizing hospital stay
Instructions for continuing care to all relevant caregivers
Preparation of discharge records, prescriptions, and referral forms
Total time spent (in minutes): 41
Anticipated Discharge: Today
Subjective/Interval History
-
Date of Service: June 15, 2024
doing well, no new complaints
Objective Data
-
Labs:
Laboratory Results
06/15/24
05:54
WBC 7.3
Hgb 13.1
Hct 37.2
Plt Count 181
Sodium 143
Potassium 3.8
Chloride 106
Carbon Dioxide 26
BUN 24 H
Creatinine 1.1 H
Glucose 110 H
Calcium 9.4
Vital Signs:
Vital Signs
Temp Pulse Resp BP Pulse Ox
98.5 F 75 17 159/85 99
06/15/24 11:01 06/15/24 11:01 06/15/24 11:01 06/15/24 11:01 06/15/24 11:01
I&O
06/14/24 06/15/24 06/16/24
06:59 06:59 06:59
Intake Total 3380 / 3380 1020 / 1020
Output Total 900 / 900
Balance 2480 / 2480 1020 / 1020
Physical Exam
-
General: No Apparent Distress
HEENT: Normocephalic and Atraumatic
Respiratory: Negative Wheezes
Cardiac: Regular Rhythm and S1/S2
Genito-urinary: No Costovertebral Tender
Musculoskeletal: No Edema
Neuro: AO x 3
Hematologic / Lymphatic: No Lymphadenopathy
Psych: Calm
Data Reviewed
-
Total Time Spent with Patient (in minutes): 42
Labs: Labs Reviewed by me
--- NOTE | 2024-06-15 11:35 | W.DS.TRANS ---
DC Summary - Copy Coordinator
-
Discharge Instructions:
Discharge Diagnosis/Procedures TY, recent CVA
Diet 2 Gram Sodium,Low Cholesterol,Diabetic, Carb
Controlled
Activity As tolerated
Driving Restrictions No driving until cleared by eye doctor.
Other Services OT,ST
Instructions:
Stand-Alone Forms:
Changes to Home Medications: No
Discharge Medications:
DC Medications w/original date entered in [employer]
amlodipine 5 mg tablet 5 mg PO DAILY Blood Pressure 06/12/24
aspirin 81 mg tablet,delayed release 81 mg PO DAILY Blood Clot Prevention/Tx 06/12/24
gabapentin 300 mg capsule 600 mg PO TID Pain 06/12/24
insulin lispro 100 unit/mL subcutaneous pen (Humalog KwikPen (U-100) Insulin) 10 unit SC BID Diabetes 06/12/24
oxycodone 15 mg tablet 15 mg PO Q4HPRN PRN moderate pain 06/12/24
atorvastatin 40 mg tablet 40 mg PO QPM #30 tabs 06/15/24
insulin glargine 100 unit/mL (3 mL) subcutaneous pen (Lantus Solostar U-100 Insulin) 15 unit (0.15 mL) SC BID Diabetes #0 mL 06/15/24
Home Medication Changes
Pending Results: No
Total time spent discharging patient (in min): 42
[2024-06-15 11:47] LABS: Glucose - Point of Care 126 mg/dl (70-99)
[2024-06-16 19:27] LABS: 24 Hour Urine Total Volume Random mL; Urine Collection Length Random hr; Urine Free Kappa Light Chains 212.86 mg/L (0.00-32.90); Urine Free Lambda Light Chains 57.31 mg/L (0.00-3.79)
== END 2024-06-15 12:41 | disposition home or self-care (01) | DRG 683 ==
LOC: 3 WEST ACU 20:45
PROVIDERS: ADMITTING PHYSICIAN Hospitalist; ATTENDING PHYSICIAN Internal Medicine; EMERGENCY PHYSICIAN Emergency Medicine; FAMILY PHYSICIAN Family Medicine; OTHER PHYSICIAN Student in an Organized Health Care Education/Training Program
DX: N17.0 Acute kidney failure with tubular necrosis (principal); G93.49 Other encephalopathy; T46.4X5A Adverse effect of angiotensin-converting-enzyme inhibitors, initial encounter; I95.9 Hypotension, unspecified; I10 Essential (primary) hypertension; E11.40 Type 2 diabetes mellitus with diabetic neuropathy, unspecified; G89.29 Other chronic pain; N20.0 Calculus of kidney; M54.2 Cervicalgia; Z66 Do not resuscitate; Z79.4 Long term (current) use of insulin; Z86.73 Personal history of transient ischemic attack (TIA), and cerebral infarction without residual deficits; E86.0 Dehydration
CPT/HCPCS: 51798; 70450; 76770; 80048; 80053; 80061; 81003; 81015; 82533; 82570; 82962; 83036; 83521; 84100; 84155; 84156; 84165; 84443; 85025; 85027; 86335; 87086; 93005; 96360; 96361; 97129; 97162; 97166; 99285

== ENCOUNTER → 2024-06-20 14:25 | Outpatient (REF) | payer MEDICARE, SELFPAY ==
--- NOTE | 2024-06-20 15:41 | VASLABRESULT ---
Preliminary VascularLab Result
- -
Dr Sauceda gave a preliminary report of her carotid to Faustina in ultrasound to give to Dr Sarabia. The study is negative. He will dictate a report later today.
== END ==
LOC: RAD 14:25
PROVIDERS: ATTENDING PHYSICIAN Family Medicine
DX: I63.9 Cerebral infarction, unspecified (principal); H53.47 Heteronymous bilateral field defects
CPT/HCPCS: 93880

== ENCOUNTER 2024-07-18 10:43 | Outpatient (RCR) | payer MEDICARE, SELFPAY | END 2024-07-18 23:59 | disposition home or self-care (01) | LOC: RST 10:43 | PROVIDERS: ATTENDING PHYSICIAN Family Medicine | DX: I69.318 Other symptoms and signs involving cognitive functions following cerebral infarction (principal); I69.310 Attention and concentration deficit following cerebral infarction; I69.311 Memory deficit following cerebral infarction | CPT/HCPCS: 96125; 97129; 97130; 97167; 97530; 97535 ==

== ENCOUNTER 2024-08-21 13:40 | Outpatient (RCR) | payer MEDICARE, SELFPAY | END 2024-08-21 23:59 | disposition home or self-care (01) | LOC: RST 13:40 | PROVIDERS: ATTENDING PHYSICIAN Family Medicine | DX: I69.310 Attention and concentration deficit following cerebral infarction (principal); I69.318 Other symptoms and signs involving cognitive functions following cerebral infarction; I69.311 Memory deficit following cerebral infarction; I69.321 Dysphasia following cerebral infarction; R48.0 Dyslexia and alexia | CPT/HCPCS: 92507; 92523; 97129; 97130; 97530; 97535 ==

== ENCOUNTER → 2024-09-08 12:19 | Outpatient (REF) | payer MEDICARE, SELFPAY ==
[2024-09-08 13:20] LABS: % Basophils 0.4 % (0-2); % Eosinophils 2.1 % (0-6); % Immature Granulocytes 0.3 % (0-0.5); % Lymphocytes 29.6 % (20.5-51.1); % Monocytes 5.3 % (1.7-9.3); % Neutrophils 62.3 % (42.2-75.2); Absolute Basophils 0.1 10^3/uL (0-0.2); Absolute Eosinophils 0.2 10^3/uL (0-0.7); Absolute Lymphocytes 3.4 10^3/uL (1.2-3.4); Absolute Monocytes 0.6 10^3/uL (0.1-0.6); Absolute Neutrophils 7.2 10^3/uL (1.4-6.5); Hematocrit 45.7 % (37.0-47.0); Hemoglobin 15.3 g/dL (12.0-16.0); Mean Corp Hgb Conc. 33.5 g/dL (33.0-37.0); Mean Corpuscular Volume 86.6 fL (81.0-99.0); Mean Platelet Volume 10.2 fL (7.4-10.4); Nucleated Red Blood Cells % 0 %; Platelet Count 276 10^3/uL (130-400); Red Blood Cell Count 5.28 10^6/uL (4.20-5.40); Red Cell Dist. Width 12.9 % (11.5-14.5); White Blood Cell Count 11.6 10^3/uL (4.8-10.8)
[2024-09-08 14:17] LABS: Blood Urea Nitrogen 14 mg/dl (7-17); Calcium 9.7 mg/dl (8.4-10.2); Carbon Dioxide 33 mmol/L (22-30); Chloride 97 mmol/L (98-107); Glucose 171 mg/dl (70-99); Potassium 4.6 mmol/L (3.5-5.1); Sodium 141 mmol/L (135-145); eGFR > 60.00
[2024-09-08 14:38] LABS: Glycohemoglobin (HgbA1c) 9.4 % (4.0-5.6)
== END ==
LOC: REG 12:19
PROVIDERS: ATTENDING PHYSICIAN Student in an Organized Health Care Education/Training Program; FAMILY PHYSICIAN Family Medicine
DX: Z01.818 Encounter for other preprocedural examination (principal)
CPT/HCPCS: 36415; 80048; 83036; 85025; 93005

== ENCOUNTER → 2024-09-11 13:30 | Outpatient (REF) | payer MEDICARE, SELFPAY | LOC: CLAB 13:30 | PROVIDERS: ATTENDING PHYSICIAN Student in an Organized Health Care Education/Training Program | DX: Z89.9 Acquired absence of limb, unspecified (principal) | CPT/HCPCS: 88305; 87070; 87075; 87102; 87116; 87205 ==

== ENCOUNTER 2024-09-19 12:43 | Outpatient (RCR) | payer MEDICARE, SELFPAY | END 2024-09-19 23:59 | disposition home or self-care (01) | LOC: RST 12:43 | PROVIDERS: ATTENDING PHYSICIAN Family Medicine | DX: I69.318 Other symptoms and signs involving cognitive functions following cerebral infarction (principal); I69.310 Attention and concentration deficit following cerebral infarction; I69.311 Memory deficit following cerebral infarction; R48.0 Dyslexia and alexia; I69.321 Dysphasia following cerebral infarction; Z73.6 Limitation of activities due to disability | CPT/HCPCS: 92507; 97129; 97130; 97530; 97535 ==

== ENCOUNTER 2024-10-21 10:51 | Outpatient (RCR) | payer MEDICARE, SELFPAY | END 2024-10-21 23:59 | disposition home or self-care (01) | LOC: RST 10:51 | PROVIDERS: ATTENDING PHYSICIAN Family Medicine | DX: I69.318 Other symptoms and signs involving cognitive functions following cerebral infarction (principal); I69.310 Attention and concentration deficit following cerebral infarction; I69.311 Memory deficit following cerebral infarction; R48.0 Dyslexia and alexia; I69.321 Dysphasia following cerebral infarction; Z73.6 Limitation of activities due to disability | CPT/HCPCS: 92507; 97530; 97535 ==

== ENCOUNTER 2024-11-18 10:02 | Outpatient (RCR) | payer MEDICARE, SELFPAY | END 2024-11-18 23:59 | disposition home or self-care (01) | LOC: RST 10:02 | PROVIDERS: ATTENDING PHYSICIAN Family Medicine | DX: I69.318 Other symptoms and signs involving cognitive functions following cerebral infarction (principal); I69.310 Attention and concentration deficit following cerebral infarction; I69.311 Memory deficit following cerebral infarction; R48.0 Dyslexia and alexia; I69.321 Dysphasia following cerebral infarction; Z73.6 Limitation of activities due to disability; I69.312 Visuospatial deficit and spatial neglect following cerebral infarction; I69.328 Other speech and language deficits following cerebral infarction | CPT/HCPCS: 92507; 97129; 97130; 97530; 97535 ==

== ENCOUNTER 2024-12-16 10:55 | Outpatient (RCR) | payer MEDICARE, SELFPAY | END 2024-12-16 23:59 | disposition home or self-care (01) | LOC: RST 10:55 | PROVIDERS: ATTENDING PHYSICIAN Family Medicine | DX: I69.318 Other symptoms and signs involving cognitive functions following cerebral infarction (principal); I69.310 Attention and concentration deficit following cerebral infarction; I69.311 Memory deficit following cerebral infarction; R48.0 Dyslexia and alexia; Z73.6 Limitation of activities due to disability; I69.321 Dysphasia following cerebral infarction; I69.312 Visuospatial deficit and spatial neglect following cerebral infarction; I69.328 Other speech and language deficits following cerebral infarction | CPT/HCPCS: 92507; 97530; 97535 ==

== ENCOUNTER 2024-12-30 13:17 | Outpatient (RCR) | payer MEDICARE, SELFPAY | END 2024-12-30 23:59 | disposition home or self-care (01) | LOC: RST 13:17 | PROVIDERS: ATTENDING PHYSICIAN Family Medicine | DX: I69.311 Memory deficit following cerebral infarction (principal); I69.318 Other symptoms and signs involving cognitive functions following cerebral infarction; I69.310 Attention and concentration deficit following cerebral infarction; Z73.6 Limitation of activities due to disability; R48.0 Dyslexia and alexia; I69.321 Dysphasia following cerebral infarction; I69.312 Visuospatial deficit and spatial neglect following cerebral infarction; I69.328 Other speech and language deficits following cerebral infarction | CPT/HCPCS: 92507; 97535 ==

== ENCOUNTER → 2025-04-20 11:20 | Outpatient (REF) | payer MEDICARE, SELFPAY | LOC: WDC 11:20 | PROVIDERS: ATTENDING PHYSICIAN Family Medicine | DX: Z12.31 Encounter for screening mammogram for malignant neoplasm of breast (principal) | CPT/HCPCS: 77063; 77067 ==